=== PATIENT | male | born 1995 | race Caucasian/White ===

== ENCOUNTER 2019-06-22 16:10 | Emergency (ER) | payer OTHER, SELFPAY ==
[2019-06-22 16:09] VITALS: BP 135/60; PULSE 84; RESP 24; TEMP 36.7; O2SAT 96
[2019-06-22 16:15] VITALS: PULSE 79
--- NOTE | 2019-06-22 16:16 | ECG_ITS ---
Measurements Intervals [place] Rate: 72 P: 68 NC: 155 QRS: 70 QRSD: 100 T: 12 QT: 352 QTc: 387 Interpretive Statements SINUS RHYTHM POSSIBLE LEFT ATRIAL ENLARGEMENT BORDERLINE ECG Electronically Signed On 06-22-2019 19:44:26 CDT by Elmer Last D.O.
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
[2019-06-22] MEDS: levETIRAcetam 1000MG/NACL100ML 1,000 MG/100 ML BAG 400 MG IVPB (17:19)
[2019-06-22 17:22] LABS: Basophils Absolute Auto 0.1 K/mm3 (0.0-0.1); Basophils Percent Auto 0.3 % (0.2-1.2); Eosinophils Absolute Auto 0.1 K/mm3 (0-0.3); Eosinophils Percent Auto 0.4 % (0-4.4); Hematocrit 47.1 % (42.0-52.0); Hemoglobin 16.1 g/dL (14.0-18.0); Immature Granulocyte Percent A 0.6 % (0-0.5); Lymphocytes Absolute Auto 1.69 K/mm3 (0.9-3.2); Lymphocytes Percent Auto 10.5 % (18.3-44.2); Mean Corpuscular HGB Conc 34.2 g/dl (32-36); Mean Corpuscular Hemoglobin 29.8 pg (26-34); Mean Corpuscular Volume 87.2 fl (80-100); Mean Platelet Volume 9.9 fl (7.4-10.4); Monocytes Absolute Auto 1.1 K/mm3 (0.1-0.6); Monocytes Percent Auto 6.6 % (2.6-8.5); Neutrophils Absolute Auto 13.2 K/mm3 (1.3-6.7); Neutrophils Percent Auto 81.6 % (45.5-73.1); Platelet Count Result 320 k/mm3 (150-375); Red Cell Distribution Width 12.2 % (11.5-14.5); White Blood Count 16.1 K/mm3 (4.5-10.0)
[2019-06-22 17:36] LABS: Alanine Aminotransferase 22 U/L (4-50); Albumin Level 4.8 g/dL (3.5-5.1); Alkaline Phosphatase 67 U/L (38-126); Aspartate Amino Transferase 24 U/L (17-59); Bilirubin,Total 0.2 mg/dL (0.2-1.3); Blood Urea Nitrogen 7 mg/dL (9-20); Calcium 9.6 mg/dL (8.4-10.2); Carbon Dioxide 27 mmol/L (22-30); Chloride 103 mmol/L (98-107); Estimated CRCL calculation 130 ml/min; Estimated Glomerular Filt Rate > 60; Glucose 96 mg/dL (75-110); Potassium 4.3 mmol/L (3.4-5.0); Sodium 138 mmol/L (137-145)
[2019-06-22 17:49] VITALS: BP 119/66; PULSE 64; RESP 23; O2SAT 98
[2019-06-22 17:58] LABS: Add Urine Microscopic? NO; Appearance Urine Clear (Clear); Bilirubin Urine Negative (Negative); Blood Urine Negative (Negative); Color Urine Colorless (Yellow); Glucose Urine UA Negative (Negative); Ketones Urine Negative (Negative); Leukocyte Esterase Ur Negative LEU/UL (Negative); Nitrate Urine Negative (Negative); Protein Urine Negative (Negative); Specific Grav Ur 1.009 (1.001-1.035); Urobilinogen Urine Negative mg/dL (<2.0)
[2019-06-22 18:29] VITALS: BP 104/73; PULSE 75; RESP 18; O2SAT 97
[2019-06-22 19:34] VITALS: BP 110/71; PULSE 70; RESP 16; O2SAT 99
== END 2019-06-22 19:36 | disposition home or self-care (01) ==
PROVIDERS: Emergency Provider Emergency Medicine; PCP Family Medicine
DX: G40.909 Epilepsy, unspecified, not intractable, without status epilepticus (principal); Z87.820 Personal history of traumatic brain injury; R94.31 Abnormal electrocardiogram [ECG] [EKG]
CPT/HCPCS: 36415; 80053; 81003; 84443; 85025; 93005; 96374; 99284; J1953

== ENCOUNTER 2022-08-14 09:28 | Emergency (ER) | payer OTHER, SELFPAY ==
--- NOTE | ~2022-08-14 | CT_ITS ---
EXAMINATION: CT pelvis wo con DATE: 08/14/2022 10:07 INDICATION: Left hip pain post trauma TECHNIQUE: High resolution computed tomography (CT) of the pelvis was performed without intravenous c ontrast. Additional sagittal and coronal reconstructions were performed. Automated exposure control a nd iterative reconstruction technique were employed. The dose-length product was 493.00 mGy-cm. COMPARISON: None FINDINGS: No fracture. Bilateral hip and sacroiliac joint spaces are normal. No hip joint effusion. The visuali zed inferior right hepatic lobe and lower poles of both kidneys are normal. Visualized portions of margie wels are unremarkable. Bladder is normal. No free intraperitoneal gas or fluid. No pathologically enl arged or abdominal, pelvic or inguinal lymphadenopathy. IMPRESSION: 1. Normal study. No acute osseous abnormality. Reviewed, dictated and finalized at location L.
--- NOTE | ~2022-08-14 | CT_ITS ---
EXAMINATION: CT lumbar spine wo con DATE: 08/14/2022 10:07 INDICATION: Back pain. Fall. TECHNIQUE: Computed tomography (CT) of the lumbar spine was performed without intravenous contrast. A utomated exposure control and iterative reconstruction technique were employed. The dose-length produ ct was 805.94 mGy-cm. COMPARISON: None FINDINGS: Bone alignment is normal. There is mild chronic anterior wedging of T12 vertebral body. Int ervertebral disc heights are normal. The following disc levels are specifically discussed: L1-L2: The disc does not extend beyond the endplate margin. There is mild bilateral facet joint osteo arthritis. There is no neural foraminal stenosis. There is no central canal stenosis. L2-L3: The disc does not extend beyond the endplate margin. There is mild bilateral facet joint osteo arthritis. There is no neural foraminal stenosis. There is no central canal stenosis. L3-L4: The disc does not extend beyond the endplate margin. There is mild bilateral facet joint osteo arthritis. There is no neural foraminal stenosis. There is no central canal stenosis. L4-L5: The disc is bulging. There is mild right facet joint osteoarthritis. There is no neural forami nal stenosis. There is mild central canal stenosis. L5-S1: The disc is bulging. There is mild left facet joint osteoarthritis. There is mild bilateral ne ural foraminal stenosis. There is mild central canal stenosis. IMPRESSION: 1. Mild lumbar spondylosis. Reviewed, dictated and finalized at location A. IMPRESSION: 1. Mild lumbar spondylosis.
[2022-08-14 09:34] VITALS: O2SAT 95
[2022-08-14 09:35] VITALS: BP 132/81; O2SAT 96
[2022-08-14 09:40] VITALS: BP 132/81; PULSE 94; RESP 16; TEMP 36.6; O2SAT 97
[2022-08-14 09:52] VITALS: O2SAT 97
--- NOTE | 2022-08-14 09:53 | ED.BACK ---
HPI - Back Pain/Injury General Chief Complaint: Back Pain/Injury Stated Complaint: back pain Time Seen by Provider: 08/14/22 09:31 History of Present Illness HPI Narrative: 27-year-old male presented the ED for evaluation of lower back and left hip pain. Patient reports he was moving a heavy pallet, tripped over a pallet and then the pallets fell onto him. Patient states this just happened prior to arrival while he was at work. Patient states he does have lower back pain and does have some intermittent pain that radiates down the left leg. Patient does have an abrasion to his lumbar spine. Patient denies striking his head denies any loss of consciousness. Related Data Allergies Allergy/AdvReac Type Severity Reaction Status Date / Time No Known Drug Allergies Allergy Unknown NONE Verified 08/14/22 09:44 Review of Systems Review of Systems: All systems reviewed & are unremarkable except as noted in HPI and below PMFSH Past Medical History Medical History (Updated 08/14/22 @ 10:30 by Drake Louise MD) Seizure disorder Traumatic brain injury Surgical History Surgical History (Updated 06/22/19 @ 17:12 by Mariluz Neil MD) No significant past surgical history Social History Social History (Updated 06/22/19 @ 17:12 by Mariluz Neil MD) Smoking status: Never smoker Alcohol intake: never Substance use: current Substance use type: marijuana Exam Narrative: APPEARANCE: Well appearing, no pain, no distress, well-nourished. HEAD: normocephalic, atraumatic. EYES: PERRLA/EOMI, conjunctivae clear. NOSE: Normal no drainage NECK: Supple. No adenopathy, no masses. RESPIRATORY: Airway patent, respirations nonlabored. Clear to auscultation bilaterally, no rales, rhonchi, wheezing. CARDIOVASCULAR: Regular rate and rhythm without murmurs rubs or gallops. ABDOMINAL: Soft, nontender, nondistended, normal bowel sounds MUSCULOSKELETAL: Moves all extremities. Midline lower back tenderness to palpation NEURO: Alert. Cranial nerves II through XII intact. Grossly intact SKIN: Abrasion to lower back Course Course Emergency Course: 27-year-old male presented the ED for evaluation of lower back and left hip pain. Imaging was ordered to rule out for fracture. Patient was provided medications for pain control. Patient's CT scans were negative for acute fracture or dislocation. Patient declined the Flexeril. Patient was updated results of his work-up and was encouraged of close follow-up with his primary care physician. All question concerns were addressed. Vital Signs Vital signs: Vital Signs Pulse Oximetry 95 08/14/22 09:34 Temperature 97.8 F 08/14/22 09:40 Pulse Rate 80 08/14/22 10:30 Respiratory Rate 16 08/14/22 10:30 Blood Pressure 132/81 08/14/22 09:40 Pulse Oximetry 98 08/14/22 10:30 Oxygen Delivery Room Air 08/14/22 09:40 MDM - Back Pain/Injury Differential Diagnosis Differential diagnosis: Likely lumbar radiculopathy, sciatica, strain of lumbar region and thoracic back pain Imaging Data Radiologist's impression: Impressions Lumbar Spine CT 08/14/22 10:10 IMPRESSION: 1. Mild lumbar spondylosis. Pelvis CT 08/14/22 10:13 IMPRESSION: 1. Normal study. No acute osseous abnormality. Discharge Plan Discharge Clinical Impression: Sciatica, Strain of lumbar region Patient Disposition: Home, Self-Care Condition: Stable Instructions: Antibiotic Form, Sciatica (ED), Back Pain (ED) Additional Instructions: Tylenol and ibuprofen for pain control. Flexeril for muscle spasm. Have close follow-up with your primary care physician. Prescriptions: New cyclobenzaprine 10 mg tablet 10 mg PO BID PRN (Reason: muscle spasm) Qty: 10 0RF No Action levetiracetam 750 mg tablet 750 mg PO BID Qty: 60 0RF Follow-up/Referrals: Edilma*,Aquilino Weber MD [Physician] - Stand Alone Forms: Work/School Release IP
[2022-08-14] MEDS: HYDROcodone/acetaminophen (*CRX) 5-325 MG TABLET 1 TAB PO (10:07)
[2022-08-14 10:26] VITALS: O2SAT 97
[2022-08-14 10:30] VITALS: PULSE 80; RESP 16; O2SAT 98
== END 2022-08-14 10:51 | disposition home or self-care (01) ==
PROVIDERS: Emergency Provider Emergency Medicine
DX: M54.30 Sciatica, unspecified side (principal); S39.012A Strain of muscle, fascia and tendon of lower back, initial encounter; W01.198A Fall on same level from slipping, tripping and stumbling with subsequent striking against other object, initial encounter
CPT/HCPCS: 72131; 72192; 99284; A9270